=== PATIENT | male | born 1995 | race Caucasian/White ===

== ENCOUNTER 2020-02-21 09:15 | Observation (INO) | payer OTHER ==
[~2020-02-21] VITALS: Ht 180.3 cm; Wt 76.1 kg
[2020-02-21] MEDS ORDERED: ONDANSETRON 2MG/ML, 2ML ONE ×3 (09:57→19:55)
[2020-02-21] MEDS ORDERED: MORPHINE SULFATE 4 MG/ML, 1ML ONE ×2 (09:57→12:07)
[2020-02-21] MEDS: MORPHINE SULFATE 4 MG/ML, 1ML IVPush PRN ×3 (09:59→12:16)
[2020-02-21] MEDS ORDERED: ONDANSETRON 2MG/ML, 2ML IVPush ONE (10:00)
[2020-02-21] MEDS ORDERED: SODIUM CHLORIDE 0.9% 1,000ML IVBOLUS ONE (10:00)
--- NOTE | 2020-02-21 10:03 | NUR ---
THIS IS A 24 YO M W/ C/O RLQ ABD PAIN, N/V SINCE LAST NIGHT. PT DENIES HEMATEMESIS/D. PT IS BRADYCARDIC, ALL OTHER VS WDL. PIV STARTED, LABS DRAWN AND SENT TO LAB. PT MEDICATED PER EMAR, REFUSING PAIN MEDS AT THIS TIME. PT PROVIDED URINAL FOR SAMPLE. PT RESTING ON Wattics W/ CALL LIGHT IN REACH AND SIDE RAILS UPX2. CONNECTED TO ALL MONITORING.
[2020-02-21 10:09] LABS: BASOPHILS # (AUTO) 0.01 x10^3/uL (0-0.1); BASOPHILS % (AUTO) 0 % (0-1); EOSINOPHILS # (AUTO) 0.07 x10^3/uL (0-0.4); EOSINOPHILS % (AUTO) 1 % (1-7); LYMPHOCYTES % (AUTO) 7 % (22-44); MD NO; MEAN CORPUSCULAR HEMOGLOBIN 31.8 pg (27.5-34.5); MEAN CORPUSCULAR HGB CONC 33.9 g/dL (33.2-36.2); MEAN CORPUSCULAR VOLUME 93.9 fL (81-97); MEAN PLATELET VOLUME 9.1 fL (7.4-10.4); MONOCYTES % (AUTO) 7 % (2-9); NEUTROPHILS # (AUTO) 12.89 x10^3/uL (1.8-6.8); NEUTROPHILS % (AUTO) 86 % (42-75); PLATELET COUNT 285 x10^3/uL (130-400); RED BLOOD COUNT 5.13 x10^6/uL (4.38-5.82); RED CELL DISTRIBUTION WIDTH 12.6 % (9.4-14.8)
--- NOTE | 2020-02-21 10:13 | NUR ---
PT UNABLE TO PROVIDE URINE SAMPLE AT THIS TIME.
[2020-02-21 10:19] LABS: ALBUMIN 4.3 g/dL (3.4-5.0); ANION GAP 5 mmol/L (5-15); CHLORIDE 107 mmol/L (98-107)
[2020-02-21 10:21] LABS: ALANINE AMINOTRANSFERASE 40 U/L (12-78); ALKALINE PHOSPHATASE 68 U/L (45-117); BILIRUBIN,TOTAL 0.9 mg/dL (0.2-1.0); CREATININE 1.37 mg/dL (0.7-1.3); TOTAL PROTEIN 8.2 g/dL (6.4-8.2)
--- NOTE | 2020-02-21 10:25 | NUR ---
MORPHINE PUSHED SLOWLY. PT REQUESTED THIS RN TO STOP AT 2MG.
[2020-02-21] MEDS ORDERED: CEFOTETAN PMX 1GM/50ML 50 ML ONE (10:27)
[2020-02-21] MEDS ORDERED: CEFOTETAN PMX 1GM/50ML 50 ML IV ONE (10:30)
[2020-02-21] MEDS ORDERED: METOCLOPRAMIDE 5 MG/ML, 2ML ONE (10:49)
--- NOTE | 2020-02-21 10:54 | NUR ---
PT STILL HAS C/O NAUSEA. UPDATED. NEW ORDERS RECEIVED. PT MEDICATED PER EMAR.
[2020-02-21] MEDS ORDERED: METOCLOPRAMIDE 5 MG/ML, 2ML IVPush ONE (11:00)
--- NOTE | 2020-02-21 11:16 | NUR ---
PT RESTING MUCH MORE COMFORTABLE AFTER REGLAN ADMIN. KEO PEAN. UPDATED THAT HE IS ON A HOLD AND HE MAY HAVE VISITORS COME TO THE ED IF HE WOULD LIKE.
--- NOTE | 2020-02-21 12:09 | NUR ---
PT AMBULATED TO THE BR W/ A STEADY GAIT.
--- NOTE | 2020-02-21 12:29 | NUR ---
PT MEDICATED PER EMAR. RESTING ON GURNEY W/ CALL LIGHT IN REACH AND SIDE RAILS UPX2. CONNECTED TO ALL MONITORING, VSS, NADN. AWAITING ADMIT.
[2020-02-21 12:43] LABS: MICROSCOPIC AUTO
[2020-02-21] MEDS ORDERED: BUPIVACAINE/PF-EPI 0.5% 1:200K ONE (14:31)
--- NOTE | 2020-02-21 14:55 | NUR ---
PT SLEEPING ON GURNEY, CONNECTED TO ALL MONITORING, VSS, NADN. CHEST RISE AND FALL OBSERVED. WILL CONTINUE TO MONITOR.
--- NOTE | 2020-02-21 15:44 | NUR ---
PT UPDATED ON POC FOR SURGERY AT 1800
[2020-02-21 17:14] VITALS: BP 123/73
--- NOTE | 2020-02-21 17:48 | NUR ---
REPORT GIVEN TO OR. WILL BE COMING DOWN FOR PATIENT IN 15 MINUTES.
[2020-02-21] MEDS ORDERED: MIDAZOLAM 1 MG/ML, 2ML ONE (18:05)
[2020-02-21] MEDS ORDERED: FENTANYL PF 100 MCG/2ML ONE ×2 (18:05→20:03)
[2020-02-21] MEDS ORDERED: CEFAZOLIN 1,000 MG ONE (18:35)
[2020-02-21] MEDS ORDERED: ROCURONIUM 10 MG/ML,10ML ONE (18:35)
[2020-02-21] MEDS ORDERED: PROPOFOL 10 MG/ML, 20ML ONE (18:35)
[2020-02-21] MEDS ORDERED: SUGAMMADEX 200 MG/2 ML IVPush ONE (18:35)
[2020-02-21] MEDS ORDERED: DEXAMETHASONE 4 MG/ML, 1ML ONE (18:35)
[2020-02-21] MEDS ORDERED: DIAZEPAM 5 MG/ML, 2ML IVPush PRN (19:00)
[2020-02-21] MEDS ORDERED: PROMETHAZINE 25 MG/ML, 1ML IVPush PRN (19:00)
[2020-02-21] MEDS ORDERED: ONDANSETRON 2MG/ML, 2ML IVPush PRN (19:00)
[2020-02-21] MEDS ORDERED: MEPERIDINE/PF 25MG/0.5ML IVPush PRN (19:00)
[2020-02-21] MEDS ORDERED: DIPHENHYDRAMINE 50 MG/ML, 1ML IVPush PRN (19:00)
[2020-02-21] MEDS ORDERED: FENTANYL PF 100 MCG/2ML IV PRN (19:00)
[2020-02-21] MEDS ORDERED: OXYcodone 5 MG/5 ML ORAL.SOL UDC PO PRN (19:00)
[2020-02-21] MEDS ORDERED: HYDROmorphone 1 MG/ML, 1ML INJ IVPush PRN (19:00)
[2020-02-21] MEDS ORDERED: PROMETHAZINE 25 MG/ML, 1ML ONE (19:30)
[2020-02-21] MEDS ORDERED: HYDROmorphone 1 MG/ML, 1ML INJ ONE (20:03)
[2020-02-21] MEDS ORDERED: OXYcodone IR 5MG TABLET PO PRN (22:00)
[2020-02-21] MEDS ORDERED: ONDANSETRON 2MG/ML, 2ML IV PRN (22:00)
[2020-02-21] MEDS ORDERED: SODIUM CHLORIDE 0.9% 1,000 ML IV SCH (22:00)
[2020-02-21] MEDS ORDERED: ACETAMINOPHEN 500 MG TABLET PO SCH (22:00)
[2020-02-21] MEDS ORDERED: HYDROmorphone 2 MG/ML, 1ML IV PRN (22:00)
[2020-02-21] MEDS ORDERED: ONDANSETRON ODT 4 MG PO PRN (22:00)
== END 2020-02-21 23:32 | disposition home or self-care (01) ==
LOC: ED 10:38 → EDIP 10:39 → 3N 21:05
PROVIDERS: ADMIT Surgery; ATTEND Surgery
DX: K35.30 Acute appendicitis with localized peritonitis, without perforation or gangrene (principal); Z20.828 Contact with and (suspected) exposure to other viral communicable diseases; D72.829 Elevated white blood cell count, unspecified; I45.10 Unspecified right bundle-branch block; R11.2 Nausea with vomiting, unspecified; F12.11 Cannabis abuse, in remission; Z79.899 Other long term (current) drug therapy
CPT/HCPCS: 36415; 44970; 80053; 81001; 85025; 87635; 88304; 96361; 96365; 96375; 96376; 99284; G0378; J0690; J1100; J2250; J2270; J2405; J2550; J2704; J2765; J3010; J3490; J7030